=== PATIENT | female | born 1960 | race African-American/Black ===

== ENCOUNTER 2022-01-19 20:18 | Emergency (ER) | payer OTHER ==
[2022-01-19 20:22] VITALS: BP 131/78; PULSE 65; TEMP 97.3; BMI 28.0
[2022-01-19 22:50] LABS: BASO % 0.7 % (0-2.0); EOS % 3.7 % (0-4.5); HEMATOCRIT 37.9 % (32.4-45.2); HEMOGLOBIN 12.8 GM/dL (10.7-15.3); LYMPH % 41.6 % (8-40); MCH 32.1 pg (25.7-33.7); MCHC 33.9 g/dl (32.0-36.0); MEAN CELL VOLUME 94.7 fl (80-96); MEAN PLT VOLUME 7.1 fl (7.5-11.1); MONO % 6.8 % (3.8-10.2); NEUT % 47.2 % (42.8-82.8); PLATELET COUNT 382 10^3/uL (134-434); RDW 13.9 % (11.6-15.6); WHITE BLOOD COUNT 3.6 K/mm3 (4.0-10.0)
[2022-01-19 23:03] LABS: BLOOD UREA NITROGEN 14.3 mg/dL (7-18)
[2022-01-19 23:04] LABS: ALBUMIN 3.6 g/dl (3.4-5.0)
[2022-01-19 23:06] LABS: PHOSPHOROUS 3.6 mg/dL (2.5-4.9); URIC ACID 5.5 mg/dL (2.6-7.2)
[2022-01-19 23:07] LABS: CREATININE 0.8 mg/dL (0.55-1.3); TOT PROT 7.3 g/dl (6.4-8.2)
[2022-01-19 23:10] LABS: BILIRUBIN,TOTAL 0.6 mg/dL (0.2-1)
[2022-01-20 01:18] LABS: HIV INTERPRETATION NEGATIVE (NEGATIVE)
== END 2022-01-19 21:05 | disposition home or self-care (01) ==
LOC: JERFT 20:18
DX: Z77.21 Contact with and (suspected) exposure to potentially hazardous body fluids (principal)
CPT/HCPCS: 36415; 80053; 82465; 82977; 83615; 84100; 84478; 84550; 85025; 86704; 86803; 87340; 87389; 87517; 99283-25

== ENCOUNTER 2022-02-10 22:09 | Emergency (ER) | payer OTHER ==
[2022-02-10 22:18] VITALS: BP 140/75; PULSE 68; TEMP 98.8; BMI 28.0
[2022-02-10] MEDS ORDERED: IBUPROFEN 400 MG TABLET (FP) PO ONE ×2 (22:25→22:33)
== END 2022-02-11 00:11 | disposition home or self-care (01) ==
LOC: JER 22:09
DX: S99.912A Unspecified injury of left ankle, initial encounter (principal); X50.0XXA Overexertion from strenuous movement or load, initial encounter
CPT/HCPCS: 73610-TC-LT-FY; 73630-TC-LT; 99283-25